=== PATIENT | female | born 1985 | race Caucasian/White ===

== ENCOUNTER 2019-02-07 01:17 | Emergency (ER) | payer BC ==
[~2019-02-07] VITALS: Ht 149.9 cm; Wt 86.2 kg
[2019-02-07 04:53] VITALS: BP 134/88
[2019-02-07] MEDS ORDERED: KETOROLAC TROMETH 60MG/2ML VIAL IM ONE (05:00)
[2019-02-07] MEDS ORDERED: methylPREDNISolone SOD SUCC 125 MG/2 ML VL IM ONE (05:00)
[2019-02-07] MEDS ORDERED: cefTRIAXone SOD 1,000 MG VL IM ONE (05:00)
== END 2019-02-07 05:26 | disposition home or self-care (01) ==
LOC: ER 01:20
DX: H60.91 Unspecified otitis externa, right ear (principal)
CPT/HCPCS: 96372; 99283; J0696; J1885; J2930

== ENCOUNTER 2022-11-24 16:07 | Inpatient (IN) | payer BC ==
[~2022-11-24] VITALS: Ht 149.9 cm; Wt 51.3 kg
[2022-11-24 17:08] LABS: Basophils # (auto) 0.1 10 ^3/uL (0-0.2); Basophils % (auto) 0.7 % (0.0-2.0); Eosinophils # (auto) 0 10 ^3/uL (0-0.8); Eosinophils % (auto) 0.5 % (0.0-7.0); Hematocrit 48.3 % (36.0-46.0); Hemoglobin 16.4 g/dL (12.2-16.2); Lymphocytes # (auto) 2.5 10 ^3/uL (0.4-5.4); Lymphocytes % (auto) 27.4 % (10.0-50.0); Mean Corpuscular Hemoglobin 31.1 pg (28.0-32.0); Mean Corpuscular Volume 91.3 fL (80.0-100.0); Monocytes # (auto) 0.5 10 ^3/uL (0-1.3); Monocytes % (auto) 5.7 % (0.0-12.0); Neutrophils % (auto) 65.7 % (37.0-80.0); Red Blood Cells 5.29 10^6/uL (4.0-5.20); Red Cell Distribution Width 13.3 % (11.8-14.3); White Blood Cell 9.1 10^3/uL (4.4-10.8)
[2022-11-24 17:24] LABS: Urine Bacteria FEW /hpf (None Seen); Urine Blood Negative /uL (Negative); Urine Clarity Clear (Clear); Urine Color Yellow (Yellow); Urine Mucus FEW (None Seen); Urine Protein, UAD TRACE (Negative); Urine Specific Gravity 1.026 (1.001-1.035); Urine Urobilinogen Normal (Negative); Urine WBC 2 /hpf (0 - 5); Urine pH 5.5 (5.0-8.0)
[2022-11-24 17:28] LABS: Alanine Aminotransferase 12 U/L (7-40); Alkaline Phosphatase 66 U/L (46-116); Anion Gap 6 (5-15); Aspartate Aminotransferase 10 U/L (13-40); BUN/Creatinine Ratio 10.1 (10.0-20.0); Blood Urea Nitrogen 9 mg/dL (9-23); Calcium 9.6 mg/dL (8.7-10.4); Carbon Dioxide 27 mmol/L (20-30); Chloride 104 mmol/L (98-107); Glucose 108 mg/dL (74-106); Lipase 52 U/L (12-53); Sodium 137 mmol/L (136-145)
[2022-11-24 17:29] LABS: Bilirubin, Total 1.2 mg/dL (0.2-1.0); Total Protein 7.9 g/dL (5.7-8.2)
[2022-11-24] MEDS ORDERED: ONDANSETRON HCL 4 MG/2 ML VIAL IV ONE (21:15)
[2022-11-24] MEDS ORDERED: MORPHINE SULFATE 4 MG/ML SYR/VIAL IV ONE (21:15)
[2022-11-24] MEDS ORDERED: ACETAMINOPHEN 325 MG TAB PO PRN (22:00)
[2022-11-24] MEDS ORDERED: cefTRIAXone 1GM/50ML D5W 50 ML IV ONE (22:09)
[2022-11-24] MEDS: PHENAZOPYRIDINE HCL 100 MG TAB PO SCH (22:37)
[2022-11-25] VITALS (8 sets, daily range): BP systolic 87–112; BP diastolic 50–76; PULSE 74–116; RESP 15–18; TEMP 97.8–98.4; O2SAT 90–98
[2022-11-25] MEDS ORDERED: MULT-1058 PO (03:01)
[2022-11-25] MEDS ORDERED: MAGN400T40 PO (03:06)
[2022-11-25] MEDS: TEMAZEPAM 15 MG CAP PO PRN (03:16)
[2022-11-25] MEDS: HYDROcodone-ACET 5/325MG TAB PO PRN ×3 (03:16→21:38)
[2022-11-25 06:44] LABS: Alkaline Phosphatase 52 U/L (46-116); Anion Gap 4 (5-15); BUN/Creatinine Ratio 12.2 (10.0-20.0); Blood Urea Nitrogen 9 mg/dL (9-23); Calcium 8.8 mg/dL (8.7-10.4); Carbon Dioxide 25 mmol/L (20-30); Chloride 108 mmol/L (98-107); Glucose 75 mg/dL (74-106); Potassium 3.8 mmol/L (3.5-5.1); Sodium 137 mmol/L (136-145)
[2022-11-25 06:45] LABS: Albumin 3.9 g/dL (3.2-4.8)
[2022-11-25 06:46] LABS: Aspartate Aminotransferase 10 U/L (13-40); Bilirubin, Total 0.6 mg/dL (0.2-1.0); Total Protein 6.1 g/dL (5.7-8.2)
[2022-11-25 06:52] LABS: Alanine Aminotransferase < 9 U/L (7-40)
[2022-11-25 06:54] LABS: Basophils # (auto) 0 10 ^3/uL (0-0.2); Basophils % (auto) 0.3 % (0.0-2.0); Eosinophils # (auto) 0.1 10 ^3/uL (0-0.8); Eosinophils % (auto) 1.3 % (0.0-7.0); Hematocrit 40.6 % (36.0-46.0); Hemoglobin 14.1 g/dL (12.2-16.2); Lymphocytes # (auto) 3.8 10 ^3/uL (0.4-5.4); Lymphocytes % (auto) 40.3 % (10.0-50.0); Mean Corpuscular Hemoglobin 31.4 pg (28.0-32.0); Mean Corpuscular Hgb Conc. 34.7 g/dL (32.0-36.0); Mean Corpuscular Volume 90.6 fL (80.0-100.0); Monocytes # (auto) 0.7 10 ^3/uL (0-1.3); Monocytes % (auto) 7.2 % (0.0-12.0); Neutrophils # (auto) 4.8 10 ^3/uL (1.6-8.6); Neutrophils % (auto) 50.9 % (37.0-80.0); Nucleated Red Blood Cells % 0.1 %; Red Blood Cells 4.48 10^6/uL (4.0-5.20); Red Cell Distribution Width 13.1 % (11.8-14.3); White Blood Cell 9.4 10^3/uL (4.4-10.8)
[2022-11-25] MEDS: cefTRIAXone 1GM/50ML D5W 50 ML IV SCH (09:01)
[2022-11-25] MEDS: PHENAZOPYRIDINE HCL 100 MG TAB PO SCH (09:08)
[2022-11-25] MEDS: PANTOPRAZOLE 40 MG TAB PO SCH (09:09)
[2022-11-25] MEDS ORDERED: SODIUM CHLORIDE 0.9% 250 ML IV ONE (14:45)
[2022-11-25 17:08] LABS: Erythrocyte Sedimentation Rate 2 mm/hr (0-20)
[2022-11-25] MEDS: MORPHINE SULFATE INJ 2 MG/ml SYRG IV PRN (18:53)
[2022-11-25 19:43] LABS: Amphetamine Screen, Urine Neg (NEGATIVE); Barbiturate Scree,Urine Neg (NEGATIVE); Benzodiazephine Screen, Urine Neg (NEGATIVE); Cannabinoid Screen, Urine Neg (NEGATIVE); Cocaine Screen, Urine Neg (NEGATIVE); Opiate Scree,Urine Pos (NEGATIVE); Phencyclidine Screen, Urine Neg (NEGATIVE)
[2022-11-25] MEDS: LACTULOSE 20Gm/30ML SOLN PO SCH (21:38)
[2022-11-26] VITALS (7 sets, daily range): BP systolic 111–144; BP diastolic 72–86; PULSE 82–93; RESP 15–18; TEMP 98.3–98.9; O2SAT 93–96
[2022-11-26] MEDS: CLINDAMYCIN 300MG IV 50 ML IV SCH ×3 (00:36→16:11)
[2022-11-26] MEDS: MORPHINE SULFATE INJ 2 MG/ml SYRG IV PRN ×3 (04:49→18:04)
[2022-11-26] MEDS: HYDROcodone-ACET 5/325MG TAB PO PRN ×3 (08:28→20:55)
[2022-11-26] MEDS: PANTOPRAZOLE 40 MG TAB PO SCH (08:28)
[2022-11-26] MEDS: LACTULOSE 20Gm/30ML SOLN PO SCH ×2 (10:27→22:00)
[2022-11-26] MEDS: cefTRIAXone 1GM/50ML D5W 50 ML IV SCH (10:27)
[2022-11-26] MEDS: SODIUM CHLORIDE 0.9% 1,000 ML IV SCH (14:15)
[2022-11-26] MEDS ORDERED: OMNIPAQUE 12mg/ml 500ml ORAL SOLUTION PO ONE (14:25)
[2022-11-26] MEDS ORDERED: IOHEXOL 300 MG/ML 100ML BOTTLE IJ ONE (16:35)
[2022-11-26] MEDS: TEMAZEPAM 15 MG CAP PO PRN (20:55)
[2022-11-26] MEDS: ONDANSETRON HCL 4 MG/2 ML VIAL IV PRN (20:56)
[2022-11-27] MEDS: CLINDAMYCIN 300MG IV 50 ML IV SCH ×2 (00:39→08:21)
[2022-11-27] MEDS: MORPHINE SULFATE INJ 2 MG/ml SYRG IV PRN ×2 (00:40→11:47)
[2022-11-27] MEDS: SODIUM CHLORIDE 0.9% 1,000 ML IV SCH (03:35)
[2022-11-27 05:00] VITALS: BP 113/66; PULSE 80; RESP 16; TEMP 97.9; O2SAT 92
[2022-11-27 08:00] VITALS: PULSE 80; RESP 16; O2SAT 98
[2022-11-27] MEDS: HYDROcodone-ACET 5/325MG TAB PO PRN (08:21)
[2022-11-27] MEDS: cefTRIAXone 1GM/50ML D5W 50 ML IV SCH (08:22)
[2022-11-27 09:00] VITALS: BP 136/81; PULSE 98; RESP 16; TEMP 97.8; O2SAT 99
[2022-11-27] MEDS ORDERED: GLYCOPYRROLATE 0.2 MG/ML 1ML VIAL ONE (09:35)
[2022-11-27] MEDS ORDERED: PROPOFOL 10 MG/ML 20 ML IV ONE (09:35)
[2022-11-27] MEDS ORDERED: DexAMETHasone SOD PHOS 10MG/1ML VIAL INJ ONE (09:35)
[2022-11-27] MEDS ORDERED: fentaNYL CITRATE 100 MCG/2 ML VL ONE (09:35)
[2022-11-27] MEDS ORDERED: LIDOCAINE 2% (LOCAL ANESTH.) PF 5ml SDV ONE (09:35)
[2022-11-27] MEDS ORDERED: ONDANSETRON HCL 4 MG/2 ML VIAL ONE (09:35)
[2022-11-27] MEDS ORDERED: KETOROLAC TROMETH 30 MG/ML 1ML VIAL ONE (09:35)
[2022-11-27] MEDS: LACTULOSE 20Gm/30ML SOLN PO SCH (10:00)
[2022-11-27] MEDS ORDERED: LIDOCAINE 1% HCL (LOCAL ANESTH.) INJ 20ML MDV ONE (10:03)
[2022-11-27] MEDS ORDERED: PHENYLEPHRINE HCL 10 MG/ML VL ONE (10:04)
[2022-11-27] MEDS ORDERED: SODIUM CHLORIDE LOCK 10 ML ONE (10:04)
[2022-11-27] MEDS ORDERED: ceFAZolin 1GM VL ONE (10:22)
[2022-11-27 10:37] VITALS: RESP 16; O2SAT 97
[2022-11-27] MEDS: ONDANSETRON HCL 4 MG/2 ML VIAL IV PRN (11:46)
[2022-11-27 12:18] LABS: Hepatitis B Surface Antigen Negative (Negative)
[2022-11-27 12:40] LABS: Hepatitis C Antibody Negative (Negative)
[2022-11-27 13:00] VITALS: BP 124/85; PULSE 80; RESP 18; TEMP 97.5; O2SAT 98
[2022-11-27] MEDS ORDERED: TEMA15CA2 PO (13:16)
[2022-11-27] MEDS ORDERED: CEPH250C PO (13:16)
[2022-11-27] MEDS ORDERED: HYDR-4902 PO ×2 (13:16)
[2022-11-27] MEDS ORDERED: LACT10SO3 PO (13:58)
[2022-11-27 14:30] VITALS: BP 124/85; PULSE 80; RESP 18; TEMP 97.6; O2SAT 98
[2022-11-27] MEDS ORDERED: HYDR-4798 PO (14:43)
== END 2022-11-27 15:30 | disposition home or self-care (01) | DRG 574 ==
LOC: ER 16:07 → OVERFLOW 21:52 → WEST WING 23:49
PROVIDERS: ADMIT Nurse Practitioner; ATTEND Nurse Practitioner Acute Care
PROC: 0XB20ZZ Excision of Right Shoulder Region, Open Approach (ICD-10-PCS; principal; 2022-11-27 09:52)
DX: L02.413 Cutaneous abscess of right upper limb (principal); N12 Tubulo-interstitial nephritis, not specified as acute or chronic; K72.90 Hepatic failure, unspecified without coma; F17.200 Nicotine dependence, unspecified, uncomplicated; L72.3 Sebaceous cyst; F10.20 Alcohol dependence, uncomplicated; L03.113 Cellulitis of right upper limb; K58.9 Irritable bowel syndrome, unspecified; Z80.9 Family history of malignant neoplasm, unspecified; Z82.0 Family history of epilepsy and other diseases of the nervous system; Z87.440 Personal history of urinary (tract) infections
CPT/HCPCS: 36415; 71045; 74176; 74177; 80053; 80307; 81001; 81025; 83690; 83880; 84484; 85025; 85652; 86141; 86803; 87086; 87340; 93005; G0378; J0690; J0696; J1100; J1885; J2001; J2405; J2704; J3490